=== PATIENT | female | born 1990 | race African-American/Black ===

== ENCOUNTER 2018-08-26 11:58 | Emergency (ER) | payer MEDICAID, OTHER ==
[~2018-08-26] VITALS: Ht 170.2 cm; Wt 63.0 kg
[2018-08-26] MEDS ORDERED: SODIUM CHLORIDE 0.9% 500 ML IV ONE (12:45)
[2018-08-26 12:52] LABS: CLARITY URINE TURBID (CLEAR); COLOR URINE YELLOW (YELLOW); KETONES URINE NEGATIVE (NEGATIVE); LEUKOCYTE ESTERASE URINE 3+ (NEGATIVE); NITRITE URINE NEGATIVE (NEGATIVE); OCCULT BLOOD URINE NEGATIVE (NEGATIVE); PROTEIN URINE NEGATIVE (NEGATIVE); SPECIFIC GRAVITY URINE 1.015 (1.005-1.030); UROBILINOGEN URINE 0.2 E.U./dL (0.2-1.0)
[2018-08-26 13:02] LABS: BASOPHILS % 0.1 % (0.0-2.0); EOSINOPHILS % 0.5 % (0.0-5.0); LYMPHOCYTES % 16.7 % (20.0-50.0); MEAN CORPUSCULAR HEMOGLOBIN 30.7 pg (28.0-32.0); MEAN CORPUSCULAR VOLUME 89.4 fL (81.0-99.0); MEAN PLATELET VOLUME 7.1 fl (7.4-10.4); MONOCYTES % 7.4 % (2.0-8.0); NEUTROPHILS % 75.3 % (40.0-76.0); PLATELET 325 x1000/uL (130-400); RED BLOOD CELL COUNT 3.91 mill/uL (4.2-5.4); RED CELL DISTRIBUTION WIDTH 13.2 % (11.6-14.6)
[2018-08-26 13:07] LABS: CHLORIDE 106 mEq/L (98-107)
[2018-08-26 13:07] LABS: *BENZODIAZEPINES SCREEN URINE NEGATIVE (NEGATIVE); *COCAINE SCREEN URINE NEGATIVE (NEGATIVE); METHADONE URINE SCREEN NEGATIVE (NEGATIVE); OPIATES URINE SCREEN NEGATIVE (NEGATIVE)
[2018-08-26 13:08] LABS: *AMPHETAMINES SCREEN URINE NEGATIVE (NEGATIVE); *BARBITURATES SCREEN URINE NEGATIVE (NEGATIVE); CANNABINOID URINE SCREEN NEGATIVE (NEGATIVE); PHENCYCLIDINE URINE SCREEN NEGATIVE (NEGATIVE)
[2018-08-26 13:30] LABS: B-HCG QUANTITATIVE 24155 mIU/mL (<3)
[2018-08-26] MEDS ORDERED: SODIUM CHLORIDE 0.9% 1,000 ML IV ONE (15:15)
[2018-08-26] MEDS ORDERED: NITROFURANTOIN 100MG M/M CAPSULE PO ONE (15:15)
[2018-08-26 16:20] VITALS: BP 101/66
== END 2018-08-26 16:45 | disposition home or self-care (01) ==
LOC: ER 11:58
DX: O23.42 Unspecified infection of urinary tract in pregnancy, second trimester (principal); O26.832 Pregnancy related renal disease, second trimester; N28.9 Disorder of kidney and ureter, unspecified; O99.282 Endocrine, nutritional and metabolic diseases complicating pregnancy, second trimester; E88.09 Other disorders of plasma-protein metabolism, not elsewhere classified; E86.0 Dehydration; D72.810 Lymphocytopenia; O99.012 Anemia complicating pregnancy, second trimester; D64.9 Anemia, unspecified; Z3A.18 18 weeks gestation of pregnancy
CPT/HCPCS: 36415; 76805; 80053; 80305; 81003; 81025; 84702; 85025; 93005; 96360; 96361; 99284; J7030; J7040; Z7610

== ENCOUNTER 2018-12-27 13:53 | Emergency (ER) | payer MEDICAID ==
[~2018-12-27] VITALS: Ht 170.2 cm; Wt 69.0 kg
[2018-12-27 15:14] VITALS: BP 124/77
== END 2018-12-27 15:21 | disposition home or self-care (01) ==
LOC: ER 13:53
DX: O99.89 Other specified diseases and conditions complicating pregnancy, childbirth and the puerperium (principal); L98.0 Pyogenic granuloma; Z3A.36 36 weeks gestation of pregnancy
CPT/HCPCS: 99281